=== PATIENT | female | born 1945 | race Caucasian/White ===

== ENCOUNTER 2016-06-29 12:28 | Emergency (ER) | payer MEDICARE ==
[~2016-06-29] VITALS: Ht 167.6 cm; Wt 72.6 kg
[2016-06-29 13:03] LABS: BASO % 0.2 % (0.0-1.0); EOS # 0.1 10*3/uL (0.0-0.4); EOS % 2.3 % (1.0-4.0); HEMOGLOBIN 11.6 g/dl (12.0-16.0); LYMPH # 1.2 10*3/uL (1.3-4.4); MEAN CELL VOLUME 87.5 fl (81.0-99.0); MEAN CORPUSCULAR HGB CONC 33.1 g/dl (33.0-37.0); MEAN PLATELET VOLUME 10.8 fl (9.6-12.3); MONO # 0.4 10*3/uL (0.1-1.0); MONO % 6.1 % (3.0-9.0); NEUT # 4.1 10*3/uL (2.3-7.9); NEUT % 70.7 % (47.0-73.0); PLATELET COUNT AUTOMATED 188 10*3/uL (130-400); RED CELL DISTRI WIDTH 13.8 % (0-14.5); WHITE BLOOD COUNT 5.8 10*3/uL (4.8-10.8)
[2016-06-29 13:12] LABS: INTERNATIONAL NORM RATIO 1.1 (2.0-3.5); PROTHROMBIN TIME 11.4 SECONDS (9.0-12.4)
[2016-06-29 13:20] LABS: ALBUMIN 4.2 gm/dl (3.1-4.5); ALKALINE PHOSPHATASE 74 U/L (45-117); BILIRUBIN, TOTAL 0.4 mg/dl (0.2-1.0); BUN 36 mg/dl (7-24); CARBON DIOXIDE 28 mmol/L (21-32); CHLORIDE 101 mmol/L (98-107); CKMB 1.6 ng/ml (0.5-3.6); CPK 144 U/L (26-192); EST GLOM FILT AFRICAN AMERICAN 44 ml/min; GLUCOSE 139 mg/dL (65-99); MAGNESIUM 1.1 mg/dL (1.5-2.1); POTASSIUM 4.4 mmol/L (3.5-5.1); SGOT/AST 23 IU/L (3-35); SGPT/ALT 28 U/L (12-78); SODIUM 135 mmol/L (136-145); TOTAL PROTEIN 7.8 gm/dL (6.4-8.2)
[2016-06-29 13:21] LABS: C-REACTIVE PROTEIN < 0.29 MG/DL (0-0.3); TROPONIN I < 0.015 ng/ml (<0.045)
[2016-06-29 14:59] LABS: LA>2 REFLEX 2 HR DRAW NOW
[2016-06-29 15:41] LABS: LA>2 RFLX FOLLOW UP AT 2 HRS 2.2 mmol/L (0.4-2.0)
[2016-06-29 17:15] LABS: LA>2 REFLEX 4 HR DRAW NOW
== END 2016-06-29 16:40 | disposition short-term general hospital (02) ==
LOC: ED 12:28
PROVIDERS: Emergency Medicine
DX: S72.041A Displaced fracture of base of neck of right femur, initial encounter for closed fracture (principal); Z88.0 Allergy status to penicillin; Z88.2 Allergy status to sulfonamides; W11.XXXA Fall on and from ladder, initial encounter; Y93.89 Activity, other specified; Y92.9 Unspecified place or not applicable; Y99.9 Unspecified external cause status

== ENCOUNTER → 2018-07-19 | Outpatient (CLI) | payer MEDICARE | END | disposition home or self-care (01) | LOC: LAB 16:19 | DX: Z01.818 Encounter for other preprocedural examination (principal); E03.9 Hypothyroidism, unspecified ==

== ENCOUNTER → 2018-10-17 | Outpatient (CLI) | payer MEDICARE ==
--- NOTE | ~2018-10-17 | HM ---
[place], [place] HOLTER MONITOR REPORT NAME: MARCOS BELCHER UNIT #: [id number] ROOM: DOCTOR: BESSIE RIBEIRO MD BIRTHDATE: [birth year] DOS: 10/17/2018 48-HOUR HOLTER MONITOR REFERRING PHYSICIAN: Robin Reeves. INDICATION: Atrial fibrillation. FINDINGS: 1. The patient underwent standard protocol 48-hour Holter monitor. Baseline rhythm is sinus. Average heart rate is 65 beats per minute with minimum heart rate 52 beats per minute, maximum heart rate of 98 beats per minute. 2. Supraventricular activity. The patient was noted to have 13 isolated PACs. 3. Ventricular activity: The patient noted to have 212 isolated PVCs. 4. No significant blocks, pauses, or bradycardia. No atrial fibrillation was noted. 5. Diary was not returned. SUMMARY OF FINDINGS: Benign Holter with normal sinus with a very, very rare PACs and rare PVCs. No atrial fibrillation noted. BESSIE RIBEIRO MD CM:HOLTER:HOLTER MONITOR REPORT [id number] BESSIE RIBEIRO MD
== END | disposition home or self-care (01) ==
LOC: CARD 10:27
DX: I48.91 Unspecified atrial fibrillation (principal)

== ENCOUNTER → 2022-09-28 | Outpatient (CLI) | payer MEDICARE | END | disposition home or self-care (01) | LOC: US 00:59 | PROVIDERS: ATTEND Internal Medicine | DX: N18.30 Chronic kidney disease, stage 3 unspecified (principal) ==

== ENCOUNTER → 2022-10-05 | Outpatient (CLI) | payer MEDICARE | END | disposition home or self-care (01) | LOC: D 13:45 | PROVIDERS: ATTEND Internal Medicine | DX: E11.69 Type 2 diabetes mellitus with other specified complication (principal) ==